=== PATIENT | male | born 1970 | race Caucasian/White ===

== ENCOUNTER 2017-05-12 07:35 | Emergency (ER) | payer OTHER ==
[~2017-05-12] VITALS: Ht 188 cm; Wt 108.9 kg
[2017-05-12 07:37] VITALS: Ht 188 cm; Wt 108.9 kg
[2017-05-12 11:00] VITALS: BP 128/72
== END 2017-05-12 11:00 | disposition home or self-care (01) ==
LOC: ED 07:35
DX: M54.5 Low back pain (principal); I10 Essential (primary) hypertension; Z88.0 Allergy status to penicillin
CPT/HCPCS: J1170; J1885; J2405; J2800; J3010; J7030; J7040